=== PATIENT | female | born 1960 | race American Indian/Alaskan Native ===

== ENCOUNTER 2021-07-07 10:28 | Outpatient (CLI) | payer OTHER ==
--- NOTE | 2021-07-07 12:00 | XRay Report ---
LEFT KNEE 2 VIEW(S) INDICATION / CLINICAL INFORMATION: PAIN IN LEFT KNEE COMPARISON: None available. FINDINGS: BONES / JOINT(S): No acute fracture or subluxation. 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 There is a 8mm ossific body just medial to the medial tibial plateau, which may r epresent a intra-articular body, potentially fractured bone spur. Complete medial compartment joint s pace loss suggests underlying medial meniscal tear. SOFT TISSUES: No significant abnormality. ADDITIONAL FINDINGS: None. Signer Name: Manolo Herrera MD Signed: 07/07/2021 11:54 AM Workstation Name: [email or web address] [email or web address]
== END 2021-07-07 10:29 | disposition home or self-care (01) ==
LOC: XRAY 10:28
PROVIDERS: ATTEND Orthopaedic Surgery
DX: M17.0 Bilateral primary osteoarthritis of knee (principal)